=== PATIENT | female | born 1965 | race American Indian/Alaskan Native ===

== ENCOUNTER 2016-06-22 14:05 | Emergency (ER) | payer MEDICAID, OTHER ==
[2016-06-22 15:54] LABS: RBC URINE 1 /hpf (0-3); URINE BACTERIA OCC (<OCC); URINE BILIRUBIN NEGATIVE (NEGATIVE); URINE BLOOD NEGATIVE (NEGATIVE); URINE COLOR Yellow (YELLOW); URINE GLUCOSE (UA) 3+ mg/dL (Normal); URINE KETONE TRACE mg/dL (NEGATIVE); URINE LEUKOCYTE ESTERASE NEG Leu/uL (Negative); URINE PROTEIN NEGATIVE (NEGATIVE); URINE UROBILINOGEN NORMAL mg/dL (0.2-1.0); WBC URINE 1 /hpf (0-5)
--- NOTE | 2016-06-22 16:12 | C.PDOC ---
History Of Present Illness 51 year old female presents to the ED with complaints of burning right mid-back pain for the past 2 weeks. Patient states the pain radiates down to her right leg, occasionally to her right shoulder, and she feels some swelling to the area. She went to urgent care but did not get an X-ray and notes the pain is worse today which prompted her visit. Patient has history of back pain. Denies injury, urinary symptoms, neck pain , rash, numbness, weakness, or any other complaints at this time. Time Seen by Provider: 06/22/16 15:14 Chief Complaint (Nursing): Back Pain History Per: Patient History/Exam Limitations: no limitations Onset/Duration Of Symptoms: Days Current Symptoms Are (Timing): Still Present Quality Of Discomfort: Sharp, Burning Severity: Mild Previous Symptoms: Back Pain Associated Symptoms: None Past Medical History Reviewed: Historical Data, Nursing Documentation, Vital Signs Vital Signs: Last Vital Signs Temp 98.6 F 06/22/16 17:44 Pulse 71 06/22/16 17:44 Resp 16 06/22/16 17:44 BP 119/77 06/22/16 17:44 Pulse Ox 99 06/22/16 17:44 - Medical History PMH: No Chronic Diseases Surgical History: Tonsillectomy - [facility] Procedures D & C NEC (06/21/99) LAPAROSCOP LYSIS-PERITONEAL ADHES (06/21/99) LAPAROSCOPY (06/21/99) Family History: States: Unknown Family Hx - Social History Hx Alcohol Use: No Hx Substance Use: No Review Of Systems Except As Marked, All Systems Reviewed And Found Negative. Constitutional: Negative for: Fever, Chills Gastrointestinal: Negative for: Abdominal Pain Genitourinary: Negative for: Dysuria, Incontinence Musculoskeletal: Positive for: Back Pain. Negative for: Neck Pain Skin: Negative for: Rash Neurological: Negative for: Weakness, Numbness, Headache, Dizziness Physical Exam - Physical Exam Appears: Non-toxic, No Acute Distress Skin: Warm, Dry, No Diaphoretic, No Pale, No Rash Head: Atraumatic, Normacephalic Eye(s): bilateral: Normal Inspection, EOMI Oral Mucosa: Moist Neck: Supple Chest: Symmetrical Cardiovascular: Rhythm Regular, No Murmur Respiratory: Normal Breath Sounds, No Accessory Muscle Use, No Rales, No Rhonchi , No Wheezing Gastrointestinal/Abdominal: Normal Exam, Soft, No Tenderness, No Distention, No Guarding Back: No CVA Tenderness, No Vertebral Tenderness, No Decreased ROM, Paraspinal Tenderness (+Right parathroacic tenderness), Other (+Pain with flexion. No mass or swelling or rash) Extremity: Normal ROM Neurological/Psych: Oriented x3, Normal Speech, Normal Cognition ED Course And Treatment - Laboratory Results Result Diagrams: 06/22/16 16:38 06/22/16 16:38 O2 Sat by Pulse Oximetry: 100 (Room air) Pulse Ox Interpretation: Normal - Other Rad LS Spine AP/LAT X-Ray: Viewed By Me, Read By Radiologist Interpretation: FINDINGS: BONES: Normal alignment. No listhesis. No fracture. DISC SPACES: There is mild disc space narrowing at the L5-S1 level. Remaining disc space heights are relatively maintained. Additionally, there are small multilevel small marginal anterolateral osteophyte formation seen at several additional levels on from the mid. OTHER FINDINGS: None. IMPRESSION: There is mild disc space narrowing at the L5-S1 level. Remaining disc space heights are relatively maintained. Additionally, there are small multilevel small marginal anterolateral osteophyte formation seen at several additional levels on from the mid Medical Decision Making Medical Decision Making: Plan: * Dorsal Spine X-ray * LS Spine AP/LAT * Urinalysis * Reassess Progress: Urinalysis showed +glucose and trace ketones. Blood work ordered and reviewed. Xrays reviewed showing degenerative disk changes and no acute fractures Labs reviewed showing hyperglycemia, otherwise negative ketones or other abnormality Discussed results with patient, and copy of report was provided. On re-examination, patient is resting comfortably in no acute distress. Patient given follow up instructions for the clinic. Instructed to return to ER if symptoms worsen or new symptoms arise. Disposition Counseled Patient/Family Regarding: Diagnosis, Need For Followup, Rx Given - Disposition Referrals: [facility] [Outside] [facility] [Outside] Maryan Centeno MD [Staff Provider] - Disposition: HOME/ ROUTINE Disposition Time: 17:24 Condition: STABLE Additional Instructions: Your glucose was elevated at 230 Take Metformin twice daily Take pain medication as needed It is important that you follow up in the clinic for further evaluation Prescriptions: Cyclobenzaprine [Cyclobenzaprine HCl] 10 mg PO TID #21 tab Ibuprofen [Motrin] 600 mg PO Q8 #30 tab metFORMIN [glucOPHAGE] 500 mg PO BID #30 tab Instructions: Hyperglycemia, Non-Diabetic (ED), Back Pain (GEN) - POA Present On Arrival: Poor Glycemic Control - Clinical Impression Clinical Impression: Sciatica, Thoracic back pain, Hyperglycemia - PA / PERSONNEL CONSULTANT / Resident Statement MD/DO has reviewed & agrees with the documentation as recorded. - Scribe Statement The provider has reviewed the documentation as recorded by the Scribe Mingo Ureña. All medical record entries made by the Petraibe were at my direction and personally dictated by me. I have reviewed the chart and agree that the record accurately reflects my personal performance of the history, physical exam, medical decision making, and the department course for this patient. I have also personally directed, reviewed, and agree with the discharge instructions and disposition.
[2016-06-22] MEDS ORDERED: Sodium Chloride 0.9% 1,000 ML IV ONE (16:23)
[2016-06-22 16:53] LABS: CHLORIDE 102 mmol/L (98-107); POTASSIUM 4.4 mmol/L (3.6-5.2); SODIUM 136 mmol/L (132-148)
[2016-06-22 16:55] LABS: BILIRUBIN,TOTAL 0.3 mg/dL (0.2-1.3); GFR AFRICAN-AMERICAN > 60
[2016-06-22 16:56] LABS: ALB/GLOB RATIO 1.4 (1.0-2.1); ALKALINE PHOSPHATASE 62 U/L (38-126); ALT/SGPT 15 U/L (9-52); AST/SGOT 16 U/L (14-36); BLOOD UREA NITROGEN 11 mg/dL (7-17); CALCIUM 9.2 mg/dl (8.6-10.4); CARBON DIOXIDE 23 mmol/L (22-30); GLUCOSE,RANDOM 228 mg/dL (65-105); TOTAL PROTEIN 7.5 g/dL (6.3-8.3)
[2016-06-22 17:06] LABS: BASO # 0.1 K/uL (0.0-0.2); BASO % 0.6 % (0.0-2.0); EOS # 0.1 K/uL (0.0-0.7); EOS % 0.9 % (0.0-4.0); HEMATOCRIT 40.7 % (34.0-47.0); LYMPH % 34.6 % (20.0-40.0); MEAN CELL VOLUME 92.8 fL (81.0-99.0); MEAN CORPUSCULAR HEMOGLOBIN 30.2 pg (27.0-31.0); MEAN CORPUSCULAR HGB CONC 32.5 g/dL (33.0-37.0); MEAN PLATELET VOLUME 8.3 fL (7.2-11.7); MONO # 0.8 K/uL (0.0-0.8); MONO % 5.9 % (0.0-10.0); NRBC % 0.1 % (0.0-2.0); WHITE BLOOD COUNT 14.4 K/uL (4.8-10.8)
--- NOTE | 2016-06-22 17:09 | RAD ---
PROCEDURE: Radiographs of the Lumbar Spine. HISTORY: back pain for 2 weeks COMPARISON: No prior. FINDINGS: BONES: Normal alignment. No listhesis. No fracture. DISC SPACES: There is mild disc space narrowing at the L5-S1 level. Remaining disc space heights are relatively maintained. Additionally, there are small multilevel small marginal anterolateral osteophyte formation seen at several additional levels on from the mid OTHER FINDINGS: None. IMPRESSION: There is mild disc space narrowing at the L5-S1 level. Remaining disc space heights are relatively maintained. Additionally, there are small multilevel small marginal anterolateral osteophyte formation seen at several additional levels on from the mid
--- NOTE | 2016-06-22 17:32 | RAD ---
HISTORY: back pain for 2 weeks COMPARISON: No prior. FINDINGS: BONES: Alignment maintained. No fracture. Pedicles appear intact. DISC SPACES: Minor multilevel degenerative spondylosis. Changes include minor in the and disc space narrowing more so along the anterior disc margins with small hip anterolateral osteophyte formation. Minor degenerative spondylosis also cysts noted in the mid to lower cervical spine. SOFT TISSUES: Normal. OTHER FINDINGS: None. IMPRESSION: No acute compression fractures. Minor multilevel degenerative spondylosis as above.
[2016-06-22 17:46] VITALS: BP 119/77; PULSE 71; RESP 16; TEMP 98.6
[2016-06-22 18:28] VITALS: O2SAT 100
== END 2016-06-22 17:46 | disposition home or self-care (01) ==
LOC: C.ER 14:05
DX: M54.30 Sciatica, unspecified side (principal); M54.6 Pain in thoracic spine; R73.9 Hyperglycemia, unspecified
CPT/HCPCS: 72070; 72100; 80053; 81001; 82009; 82948; 84703; 85025; 99284; J7040

== ENCOUNTER 2017-03-30 14:45 | Emergency (ER) | payer OTHER, MEDICAID ==
[2017-03-30 15:33] VITALS: TEMP 97.5; O2SAT 99
[2017-03-30] MEDS ORDERED: HYDROmorphone 0.5 mg/0.5 ml ISec IM STA ×2 (16:17→17:10)
[2017-03-30] MEDS ORDERED: Enoxaparin 60 mg Syringe SC STA (16:23)
--- NOTE | 2017-03-30 16:26 | C.PDOC ---
History Of Present Illness 51-YEAR-OLD FEMALE, PRESENTS TO THE EMERGENCY DEPARTMENT WITH COMPLAINTS OF R LEG PAIN SINCE THIS MORNING. SP QUADRICEP TENDON REPAIR 03/29/[address] CONDE. PS HAVING INCR PAIN AND TIGHTNESS BACK OF R THIGH. WORSE W MOVEMENT. NO ASSOC SOB, CP, DIZZY. NO RELIEF W TRAMADOL @ 0800 AND 1300 EXAM MOD DIST NONTOXIC LUNGS NEG CV RRR EXT R LEG +SPASM HAMSTRING W DIFF TEND NO PALP CORD. NO CALF TEND, SWELL, MASS. POST OP WOUND BANDAGES IN PLACE. Time Seen by Provider: 03/30/17 16:07 Chief Complaint (Nursing): Lower Extremity Problem/Injury History Per: Patient History/Exam Limitations: no limitations Onset/Duration Of Symptoms: Hrs Current Symptoms Are (Timing): Still Present Severity: Moderate Past Medical History Reviewed: Historical Data, Nursing Documentation, Vital Signs Vital Signs: Last Vital Signs Temp 97.5 F L 03/30/17 15:28 Pulse 76 03/30/17 17:45 Resp 18 03/30/17 17:45 BP 123/75 03/30/17 17:45 Pulse Ox 99 04/01/17 07:35 Surgical History: Tonsillectomy - [facility] Procedures D & C NEC (06/21/99) LAPAROSCOP LYSIS-PERITONEAL ADHES (06/21/99) LAPAROSCOPY (06/21/99) Family History: States: No Known Family Hx - Social History Hx Alcohol Use: No Hx Substance Use: No - Immunization History Hx Tetanus Toxoid Vaccination: No Hx Influenza Vaccination: No Hx Pneumococcal Vaccination: No Review Of Systems Except As Marked, All Systems Reviewed And Found Negative. Constitutional: Negative for: Fever, Chills Cardiovascular: Negative for: Chest Pain, Edema, Light Headedness Respiratory: Negative for: Shortness of Breath Gastrointestinal: Negative for: Nausea, Vomiting Musculoskeletal: Positive for: Leg Pain (R) Skin: Negative for: Rash Neurological: Negative for: Weakness, Numbness, Headache, Dizziness Physical Exam - Physical Exam Appears: Non-toxic, No Acute Distress Skin: Warm, Dry, No Rash Head: Atraumatic, Normacephalic Eye(s): bilateral: Normal Inspection, PERRL Nose: Normal Oral Mucosa: Moist Lips: Normal Appearing Neck: Normal ROM Cardiovascular: Rhythm Regular, No Murmur Respiratory: Normal Breath Sounds, No Accessory Muscle Use Extremity: Other (R LEG +SPASM HAMSTRING W DIFF TEND NO PALP CORD. NO CALF TEND , SWELL, MASS. POST OP WOUND BANDAGES IN PLACE.) Neurological/Psych: Oriented x3, Normal Speech ED Course And Treatment O2 Sat by Pulse Oximetry: 99 Progress - Re-Evaluation Re-evaluation Note: 03/30/17 16:30 D/W DR CONDE AWARE OF ER FINDINGS AND AGREES W MGMT PLAN 03/30/17 17:10 PS SURG WOUND PAIN RESOLVED, STILL W PERSIST POST THIGH PAIN AND TIGHTNESS. NO SOB, CP 03/30/17 17:58 PS FEELS BETTER WISHES DC HOME - Data Reviewed Data Reviewed: Old records - Continuity of Care Discussed pt. case with application security consultant/specialty: Orthopedic Surgery Disposition Counseled Patient/Family Regarding: Diagnosis, Need For Followup, Rx Given - Disposition Referrals: [facility] [Provider Group] Disposition: HOME/ ROUTINE Disposition Time: 17:58 Condition: IMPROVED Additional Instructions: RETURN TOMORROW AT 8 A.M. TO HAVE A DOPPLER ULTRASOUND OF YOUR LEG FOR EVALUATION OF POSSIBLE DVT. RETURN IF WORSENING SYMPTOMS Prescriptions: Ondansetron [Zofran Odt] 4 mg PO TID PRN #9 odt PRN Reason: Nausea/Vomiting oxyCODONE/Acetaminophen [Percocet 5/325 mg Tab] 1 ea PO Q6 PRN #10 tab PRN Reason: Pain, Moderate (4-7) Instructions: Leg Pain (ED) Forms: [facility] ([place]) - Clinical Impression Clinical Impression: Leg pain - Scribe Statement The provider has reviewed the documentation as recorded by the Scribe (Juli Conde) All medical record entries made by the Scribe were at my direction and personally dictated by me. I have reviewed the chart and agree that the record accurately reflects my personal performance of the history, physical exam, medical decision making, and the department course for this patient. I have also personally directed, reviewed, and agree with the discharge instructions and disposition.
[2017-03-30] MEDS ORDERED: Enoxaparin 60 mg Syringe ONE (16:42)
[2017-03-30 17:52] VITALS: BP 123/75; PULSE 76; RESP 18
== END 2017-03-30 18:32 | disposition home or self-care (01) ==
LOC: C.ER 14:45
DX: M79.651 Pain in right thigh (principal)
CPT/HCPCS: 96372; 99285; J1170; J1650

== ENCOUNTER 2017-03-31 08:34 | Emergency (ER) | payer OTHER, MEDICAID ==
[2017-03-31 09:13] VITALS: BMI 25.4
[2017-03-31 09:26] VITALS: BP 129/70; PULSE 74; RESP 18; O2SAT 100
[2017-03-31] MEDS ORDERED: Oxycodone/Acetaminophen 5/325 mg Tab PO STA (09:28)
[2017-03-31] MEDS ORDERED: Oxycodone/Acetaminophen 5/325 mg Tab ONE (09:33)
[2017-03-31 10:49] VITALS: TEMP 98.2
--- NOTE | 2017-03-31 10:51 | C.PDOC ---
History Of Present Illness Pt c/o RLE pain after knee surgery 2 days ago. Time Seen by Provider: 03/31/17 09:22 Chief Complaint (Nursing): Lower Extremity Problem/Injury History Per: Patient Onset/Duration Of Symptoms: Days (2) Current Symptoms Are (Timing): Still Present Severity: Moderate Additional History Per: Prior Records Past Medical History Reviewed: Historical Data, Nursing Documentation, Vital Signs Vital Signs: Last Vital Signs Temp Pulse 74 03/31/17 09:25 Resp 18 03/31/17 09:25 BP 129/70 03/31/17 09:25 Pulse Ox 100 03/31/17 09:25 - Medical History PMH: No Chronic Diseases Surgical History: Tonsillectomy Other Surgeries: Right knee surgery - [facility] Procedures D & C NEC (06/21/99) LAPAROSCOP LYSIS-PERITONEAL ADHES (06/21/99) LAPAROSCOPY (06/21/99) Family History: States: Unknown Family Hx - Social History Hx Tobacco Use: Yes Hx Alcohol Use: No Hx Substance Use: No - Immunization History Hx Tetanus Toxoid Vaccination: No Hx Influenza Vaccination: No Hx Pneumococcal Vaccination: No Review Of Systems Except As Marked, All Systems Reviewed And Found Negative. Constitutional: Negative for: Fever, Weakness Cardiovascular: Negative for: Chest Pain Respiratory: Negative for: Shortness of Breath Gastrointestinal: Negative for: Vomiting, Abdominal Pain Musculoskeletal: Positive for: Leg Pain (right). Negative for: Neck Pain, Back Pain Skin: Negative for: Rash Neurological: Negative for: Weakness, Numbness Physical Exam - Physical Exam Appears: Non-toxic, No Acute Distress Skin: Warm, Dry Head: Atraumatic, Normacephalic Eye(s): bilateral: PERRL, EOMI Neck: Normal ROM, Supple Cardiovascular: Rhythm Regular Respiratory: Normal Breath Sounds, No Accessory Muscle Use Gastrointestinal/Abdominal: Soft, No Tenderness Back: No CVA Tenderness Extremity: Normal ROM, Tenderness (nonspecific soft tissue in posterior thigh), Calf Tenderness (right), Other (Right knee surgical wound with dry blood and no purulent discharge) Pulses: Right Dorsalis Pedis: Normal Neurological/Psych: Oriented x3, Normal Motor, Normal Sensation ED Course And Treatment O2 Sat by Pulse Oximetry: 100 Pulse Ox Interpretation: Normal - CT Scan/US RLE Duplex Other Rad Studies (CT/US): Radiology Report Reviewed CT/US Interpretation: Negative for DVT Reassessment Condition: Improved Disposition Discussed With Dr.: Sol Conde Comment: He states that given pt is negative for DVT, he does not have any other concerns and wants pt to be discharged home to f/up in his office. Doctor Will See Patient In The: Office Counseled Patient/Family Regarding: Studies Performed, Diagnosis, Need For Followup - Disposition Referrals: Sol Conde MD [Staff Provider] - Disposition: HOME/ ROUTINE Disposition Time: 10:54 Condition: STABLE Additional Instructions: Follow up with your surgeon this week. Return to the ER if you develop fever, redness, pus drainage, chest pain, shortness of breath, worsening of symptoms or if you have any other concerns. Instructions: Pain Management After Surgery (GEN) - Clinical Impression Clinical Impression: Pain following surgery or procedure
--- NOTE | 2017-04-02 15:12 | VASCLAB ---
PROCEDURE: Right Lower Extremity Venous Duplex Exam. HISTORY: Pain/swelling s/p knee surgery, r/o DVT PRIORS: None. TECHNIQUE: Right common femoral, femoral, popliteal and posterior tibial, peroneal and great saphenous veins were evaluated. Flow was assessed with color Doppler, compressibility, assessment of phasic flow and augmentation response. Report prepared by RATNA Najera, RVT FINDINGS: RIGHT: 1. Common Femoral Vein: 1.1. Compressibility - Fully compressible: Thrombus - None: Flow - Phasic: Augmentation -Normal: Reflux - None. 2. Femoral Vein: 2.1. Compressibility - Fully compressible: Thrombus - None: Flow - Phasic: Augmentation -Normal: Reflux - None. 3. Popliteal Vein: 3.1. Compressibility - Fully compressible: Thrombus - None: Flow - Phasic: Augmentation -Normal: Reflux - None. 4. Posterior Tibial Vein: 4.1. Compressibility - Fully compressible: Thrombus - None: Flow - Phasic: Augmentation -Normal: Reflux - None. 5. Peroneal Vein: 5.1. Compressibility - Fully compressible: Thrombus - None: Flow - Phasic: Augmentation -Normal: Reflux - None. 6. Great Saphenous Vein: 6.1. Compressibility - Fully compressible: Thrombus -None: Flow - Phasic: Augmentation - Normal: Reflux - None. OTHER FINDINGS: IMPRESSION: No evidence of deep or superficial vein thrombosis of the right lower extremity with excellent venous flow. Normal valve function noted of the right side. Normal venous flow noted in the left common femoral vein.
== END 2017-03-31 11:02 | disposition home or self-care (01) ==
LOC: C.ER 08:34
DX: G89.18 Other acute postprocedural pain (principal); Z72.0 Tobacco use